=== PATIENT | female | born 1980 | race Caucasian/White ===

== ENCOUNTER 2018-07-06 13:46 | Emergency (ER) | payer SELFPAY ==
[2018-07-06] MEDS ORDERED: Ketorolac INJ* 30 MG/ML 1 ML VIAL IM ONE (17:52)
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
[2018-07-06] MEDS ORDERED: diPHENhydraMINE PO* 25 MG PO ONE (21:55)
[2018-07-06] MEDS ORDERED: Meclizine TAB* 12.5 MG PO ONE (21:55)
[2018-07-07 01:57] VITALS: BP 113/72
== END 2018-07-06 22:35 | disposition home or self-care (01) ==
LOC: ED 13:46
DX: S02.2XXA Fracture of nasal bones, initial encounter for closed fracture (principal); W50.0XXA Accidental hit or strike by another person, initial encounter; R42 Dizziness and giddiness; F17.210 Nicotine dependence, cigarettes, uncomplicated; Z91.040 Latex allergy status; Z88.8 Allergy status to other drugs, medicaments and biological substances
CPT/HCPCS: 70450; 70486; 96374; 99283; A9270-GY; J1885

== ENCOUNTER → 2018-08-13 14:11 | Emergency (ER) | payer SELFPAY ==
[2018-08-13 14:21] VITALS: BP 127/82
--- NOTE | 2018-08-13 14:59 | ED ---
Throat Pain/Nasal Congestion - HPI Summary HPI Summary: Pt. is a 38-year-old female presenting to the emergency department for dental pain 4 days. Patient states she woke up with swelling to the left side of her face. She denies fever, chills, nausea, vomiting. Denies past medical history. States she currently does not have a dentist. Symptoms are mild in severity. Touching affected area makes symptoms worse. Nothing makes symptoms better. - History of Current Complaint Chief Complaint: EDDentalPain Time Seen by Provider: 08/13/18 14:30 Hx Obtained From: Patient - Allergies/Home Medications Allergies/Adverse Reactions: Allergies Allergy/AdvReac Type Severity Reaction Status Date / Time cayenne Allergy Swelling Verified 08/13/18 14:21 Of Face,Lips,& Throat latex Allergy Hives Verified 08/13/18 14:21 pseudoephedrine Allergy Hives/Diff. Verified 08/13/18 14:21 Breathing/I tching quetiapine [From Seroquel] Allergy Hives Verified 08/13/18 14:21 PMH/Surg Hx/FS Hx/Imm Hx Previously Healthy: Yes Endocrine/Hematology History: Denies: Hx Diabetes Cardiovascular History: Denies: Hx Myocardial Infarction Infectious Disease History: No Infectious Disease History: Denies: Traveled Outside the [place] in Last 30 Days - Family History Known Family History: Positive: Non-Contributory Negative: Renal Disease - Social History Occupation: Unemployed Lives: With Family Alcohol Use: None Hx Substance Use: No Substance Use Type: Reports: None Hx Tobacco Use: Yes Smoking Status (MU): Light Every Day Tobacco Smoker Review of Systems Constitutional: Negative Negative: Fever, Chills Positive: Dental Pain Gastrointestinal: Negative Negative: Vomiting, Nausea All Other Systems Reviewed And Are Negative: Yes Physical Exam Triage Information Reviewed: Yes Vital Signs On Initial Exam: Initial Vitals Temp Pulse Resp BP Pulse Ox 98.4 F 84 16 127/82 98 08/13/18 14:16 08/13/18 14:16 08/13/18 14:16 08/13/18 14:16 08/13/18 14:16 Vital Signs Reviewed: Yes Appearance: Positive: Well-Appearing - Pt. sitting on bed in NAD. Friend present. Skin: Positive: Warm, Dry Head/Face: Positive: Normal Head/Face Inspection Eyes: Positive: Normal, EOMI, EITAN, Conjunctiva Clear Dental: Positive: Other - Poor dentition throughout. Fracture to last bottom molar. No drainable abscess. no swelling under the tongue. Mild facial edema on left. No submandibular edema. No trismus. Neck: Positive: Supple, Enlarged Nodes @ - left cervial anterior Neurological: Positive: Normal, CN Intact II-III Psychiatric: Positive: Affect/Mood Appropriate Diagnostics - Vital Signs Vital Signs Temp Pulse Resp BP Pulse Ox 08/13/18 14:16 98.4 F 84 16 127/82 98 - Laboratory Lab Statement: Any lab studies that have been ordered have been reviewed, and results considered in the medical decision making process. EENT Course/Dx - Course Course Of Treatment: Patient presenting with dental abscess. Afebrile. Started on clindamycin and naproxen. Advised follow-up with a dentist as soon as possible. Return to the ER for worsening swelling, fever, difficulty swallowing or breathing. Patient understands and agrees with plan. - Differential Diagnoses Differential Diagnoses: Dental Abscess, Dental Caries, Gingivitis - Diagnoses Provider Diagnoses: Dental abscess Discharge - Sign-Out/Discharge Documenting (check all that apply): Patient Departure Patient Received Moderate/Deep Sedation with Procedure: No - Discharge Plan Condition: Good Disposition: HOME Prescriptions: Clindamycin HCl 300 mg PO QID #40 capsule Naproxen [Naproxen 500 mg tab] 500 mg PO BID #20 tablet Patient Education Materials: Dental Abscess (ED) Referrals: [facility] [Outside] Additional Instructions: Follow up with a dentist as soon as possible Take medication as directed Return to ER if symptoms change or worsen - Billing Disposition and Condition Condition: GOOD Disposition: Home
== END | disposition home or self-care (01) ==
LOC: ED 14:11
DX: K04.7 Periapical abscess without sinus (principal); Z88.8 Allergy status to other drugs, medicaments and biological substances; Z91.040 Latex allergy status; F17.200 Nicotine dependence, unspecified, uncomplicated
CPT/HCPCS: 99282